=== PATIENT | male | born 1965 | race Caucasian/White ===

== ENCOUNTER 2017-05-20 19:47 | Emergency (ER) | payer OTHER ==
[~2017-05-20] VITALS: Ht 185.4 cm; Wt 100.0 kg
[~2017-05-20 19:47] MED LIST: AMOXICILLIN 50500 MG PO; AMOXICILLIN 8751 TAB PO; AMOXICILLIN125 MG PO; ASPIRIN 81M81 MG/TA2 PO; ATENOLOL50 MG PO; BENADRYL25 MG PO; CARVEDILOL25 MG PO; CATAPRES 0.1MG0.1 MG PO; CLINDAMYCIN HC150 MG PO; CLONIDINE0.2 MG PO; COREG 25MG25 MG/TAB PO; COZAAR100 MG PO; EFFIENT10 MG PO; EPI EZ PEN1 MG/ML IM; FISH OIL1000 MG PO; FLEXERIL 1010 MG/TAB PO; HCTZ12.5TAB PO; LISINOPRIL/HCTZ1 TA1 PO; LISINOPRIL/HCTZ1 TAB PO; LOPRESSOR 225 MG/TAB PO; LORTAB 5/500 501 TAB PO; NAPROSYN500 MG PO; NICODERM C14 MG/PATC TOP; NICODERM C21 MG/PATC TOP; NICODERM C7 MG/PATCH TOP; NO HOME MEDICATIONS; NORCO 325 MG-51 TAB PO; NORVASC 10MG10 MG PO; PERCOCET 325 MG1 TA2 PO; PRAVASTATIN40 MG PO; PREDNISONE20 MG PO; ROXICODONE 55 MG/TAB PO; TUSS PO; VICODIN 5/5001 UDTAB PO; ZOFRAN 4MG T4 MG/TAB PO
[2017-05-20 19:59] VITALS: TEMP 98
[2017-05-20] MEDS ORDERED: MICROZIDE12.5 MG PO (20:05)
[2017-05-20] MEDS ORDERED: LIPITOR 40MG TA40 MG PO (20:06)
[2017-05-20 20:57] LABS: BASO # 0.1 (0.0-0.2); BASO % 0.5 % (0.0-2.0); EOS # 0.6 (0.0-0.7); EOS % 5.2 % (0-4.0); GRAN # 4.8 (1.4-6.5); HEMATOCRIT 39.2 % (42.0-52.0); HEMOGLOBIN 13.6 g/dl (13.5-18.0); LYMPH # 4.4 (1.2-3.4); LYMPH % 40.1 % (20.0-51.0); MEAN CELL VOLUME 92 fl (80.0-100.0); MEAN CORPUSCULAR HEMOGLOBIN 32 pg (27.0-31.0); MEAN CORPUSCULAR HGB CONC 35 g/dl (33.0-37.0); MEAN PLATELET VOLUME 9.2 fl (7.4-10.4); MONO # 1.1 (0.1-0.6); MONO % 9.9 % (1.7-9.3); PLATELET COUNT 220 K/mm3 (130-400); RED BLOOD COUNT 4.26 M/mm3 (4.20-5.60); REDCELL DISTRIBUTION WIDTH-CV 11.9 % (11.5-14.5); WHITE BLOOD COUNT 10.9 K/mm3 (4.8-10.8)
[2017-05-20 21:12] LABS: ADJUSTED CALCIUM 9.4 mg/dL (8.4-10.2); ALANINE AMINOTRANSFERASE 42 U/L (21-72); ALBUMIN 4.2 gm/dL (3.5-5.0); ALKALINE PHOSPHATASE 82 U/L (50-136); ANION GAP 12 mmol/L (7-16); BILIRUBIN,TOTAL 0.4 mg/dL (0.0-1.0); BLOOD UREA NITROGEN 23 mg/dL (9-20); C-REACTIVE PROTEIN < 0.5 mg/dL (0.0-0.9); CALCIUM 9.6 mg/dL (8.4-10.2); CARBON DIOXIDE 25 mmol/L (22-30); CHLORIDE 103 mmol/L (98-107); CREATININE, serum 0.82 mg/dL (0.66-1.25); GLUCOSE 94 mg/dL (74-106); POTASSIUM 3.7 mmol/L (3.4-5.0); SODIUM 139 mmol/L (137-145); TOTAL PROTEIN 7.6 gm/dL (6.4-8.2)
[2017-05-20] MEDS ORDERED: CLEOCIN HCL300 MG PO (22:14)
[2017-05-20] MEDS ORDERED: PERCOCET 325 MG1 TA3 PO (22:14)
[2017-05-20 22:25] VITALS: BP 143/80; PULSE 80
[2017-05-22 12:32] LABS: MUMPS AB IgG INDEX 1.3 (()); MUMPS VIRUS ANTIBODY,IGG Positive (())
[2017-05-22 15:37] LABS: MUMPS AB IgM INDEX 0.11 (())
== END 2017-05-20 22:34 | disposition home or self-care (01) ==
LOC: COL.ER 19:47
PROVIDERS: Emergency Medicine
DX: K11.1 Hypertrophy of salivary gland (principal); I10 Essential (primary) hypertension; I25.10 Atherosclerotic heart disease of native coronary artery without angina pectoris; F17.200 Nicotine dependence, unspecified, uncomplicated; Z79.82 Long term (current) use of aspirin
CPT/HCPCS: Q9967

== ENCOUNTER → 2018-10-08 | Outpatient (CLI) | payer OTHER ==
[~2018-10-08] MED LIST changes: +CLEOCIN HCL300 MG PO; +LIPITOR 40MG TA40 MG PO; +MICROZIDE12.5 MG PO; +PERCOCET 325 MG1 TA3 PO
== END ==
LOC: COL.RAD 10:02
DX: Z02.71 Encounter for disability determination (principal); M51.16 Intervertebral disc disorders with radiculopathy, lumbar region; M25.521 Pain in right elbow

== ENCOUNTER 2020-01-05 07:50 | Observation (INO) | payer OTHER ==
[~2020-01-05] VITALS: Ht 185.4 cm; Wt 102.7 kg
[2020-01-05 08:47] LABS: ALANINE AMINOTRANSFERASE 31 U/L (4-49); ALBUMIN 4.6 gm/dL (3.5-5.0); ALKALINE PHOSPHATASE 94 U/L (50-136); ANION GAP 12 mmol/L (7-16); AST,SGOT 33 U/L (15-37); BILIRUBIN,TOTAL 0.6 mg/dL (0.0-1.0); BLOOD UREA NITROGEN 21 mg/dL (9-20); CALCIUM 9.7 mg/dL (8.4-10.2); CARBON DIOXIDE 24 mmol/L (22-30); CHLORIDE 104 mmol/L (98-107); CREATININE, serum 0.82 (0.66-1.25); GLUCOSE 112 mg/dL (74-106); POTASSIUM 4.2 mmol/L (3.4-5.0); SODIUM 140 mmol/L (137-145); TOTAL PROTEIN 7.9 gm/dL (6.4-8.2)
[2020-01-05 08:52] LABS: C-REACTIVE PROTEIN < 0.5 mg/dL (0.0-0.9)
[2020-01-05 08:58] LABS: TROPONIN-I 0.057 ng/mL (0.000-0.035)
[2020-01-05 09:14] LABS: BASO # 0.1 (0.0-0.2); EOS # 1.2 (0.0-0.7); EOS % 14.5 % (0-4.0); GRAN # 3.5 (1.4-6.5); GRAN % 42.2 % (42.2-75.2); HEMATOCRIT 44.2 % (42.0-52.0); HEMOGLOBIN 14.7 g/dl (13.5-18.0); LYMPH # 2.8 (1.2-3.4); LYMPH % 33.9 % (20.0-51.0); MEAN CELL VOLUME 96 fl (80.0-100.0); MEAN CORPUSCULAR HEMOGLOBIN 32 pg (27.0-31.0); MEAN CORPUSCULAR HGB CONC 33 g/dl (33.0-37.0); MEAN PLATELET VOLUME 9.8 fl (7.4-10.4); MONO # 0.7 (0.1-0.6); MONO % 8.2 % (1.7-9.3); PLATELET COUNT 221 K/mm3 (130-400); RED BLOOD COUNT 4.61 M/mm3 (4.20-5.60); REDCELL DISTRIBUTION WIDTH-CV 12.3 % (11.5-14.5)
[2020-01-05 13:58] VITALS: BP 156/96; PULSE 85; TEMP 97.8
[2020-01-05 14:13] LABS: PARTIAL THROMBOPLASTIN TIME 32.8 SECONDS (26.0-37.0)
[2020-01-05 15:04] VITALS: BP 156/96; PULSE 85; TEMP 97.8
--- NOTE | 2020-01-05 18:01 | NUR ---
Patient transferring to [facility], I have called and given report to recieving nurse YOON Neely, Heparin gtt infusing at 10ml/hr, patient is being transported by [facility], daughter present at tiem of discharge
== END 2020-01-05 18:03 | disposition other institution, planned readmission (95) ==
LOC: COL.ER 07:50 → MEDICAL 09:34
PROVIDERS: Emergency Medicine; Physician Assistant; ADMIT Hospitalist
DX: I42.9 Cardiomyopathy, unspecified (principal); I11.0 Hypertensive heart disease with heart failure; I50.22 Chronic systolic (congestive) heart failure; I21.4 Non-ST elevation (NSTEMI) myocardial infarction; I25.10 Atherosclerotic heart disease of native coronary artery without angina pectoris; I08.1 Rheumatic disorders of both mitral and tricuspid valves; I44.7 Left bundle-branch block, unspecified; F17.210 Nicotine dependence, cigarettes, uncomplicated; F12.90 Cannabis use, unspecified, uncomplicated; Z90.89 Acquired absence of other organs; Z88.8 Allergy status to other drugs, medicaments and biological substances; Z79.82 Long term (current) use of aspirin; Z79.891 Long term (current) use of opiate analgesic; Z79.02 Long term (current) use of antithrombotics/antiplatelets
CPT/HCPCS: J1644; J1940; J2060

== ENCOUNTER 2020-06-01 14:22 | Emergency (ER) | payer OTHER ==
[~2020-06-01] VITALS: Ht 185.4 cm; Wt 104.5 kg
[2020-06-01 14:27] VITALS: TEMP 98.3
[2020-06-01 15:11] LABS: BASO # 0.1 (0.0-0.2); BASO % 0.9 % (0.0-2.0); EOS # 0.9 (0.0-0.7); EOS % 7.2 % (0-4.0); GRAN % 57.7 % (42.2-75.2); HEMOGLOBIN 13.8 g/dl (13.5-18.0); LYMPH # 2.8 (1.2-3.4); LYMPH % 23.5 % (20.0-51.0); MEAN CELL VOLUME 95 fl (80.0-100.0); MEAN CORPUSCULAR HEMOGLOBIN 32 pg (27.0-31.0); MEAN CORPUSCULAR HGB CONC 34 g/dl (33.0-37.0); MONO # 1.2 (0.1-0.6); MONO % 10.3 % (1.7-9.3); PLATELET COUNT 165 K/mm3 (130-400); RED BLOOD COUNT 4.33 M/mm3 (4.20-5.60); REDCELL DISTRIBUTION WIDTH-CV 12.1 % (11.5-14.5)
[2020-06-01 15:17] LABS: ALBUMIN 4.2 gm/dL (3.5-5.0); BILIRUBIN,TOTAL 0.7 mg/dL (0.0-1.0); CALCIUM 9.6 mg/dL (8.4-10.2); CREATININE, serum 0.81 (0.66-1.25); POTASSIUM 4.4 mmol/L (3.4-5.0); TOTAL PROTEIN 7.8 gm/dL (6.4-8.2)
[2020-06-01 15:28] LABS: TROPONIN-I 0.02 ng/mL (0.000-0.035)
[2020-06-01 15:38] LABS: ARTERIAL BLD GAS O2 SATURATION 95.8 % (92-100); ARTERIAL BLD GAS TCO2 CT 20.8; ARTERIAL BLOOD GAS BASE EXCESS -2.7 (-2-2); ARTERIAL BLOOD GAS HCO3 19.9 meq/L (22-26); ARTERIAL BLOOD GAS PCO2 28.9 mmHg (35-45); ARTERIAL BLOOD GAS PO2 76.7 mmHg (80-100); ARTERIAL BLOOD GAS pH 7.46 (7.35-7.45)
[2020-06-01 16:18] LABS: COLLECTION METHOD CLEAN CATCH
[2020-06-01 16:24] LABS: PH 5 (5-8); SQUAMOUS EPITHELIAL None Seen /hpf; URINE APPEARANCE Clear; URINE BACTERIA None Seen /hpf; URINE BILIRUBIN Negative (NEGATIVE); URINE BLOOD Negative (NEGATIVE); URINE COLOR Yellow; URINE GLUCOSE Negative (NEGATIVE); URINE KETONE Negative (NEGATIVE); URINE LEUKOCYTE ESTERASE Negative (NEGATIVE); URINE NITRATE Negative (NEGATIVE); URINE PROTEIN(semi-quant) Negative (NEGATIVE); URINE RBC None Seen /hpf; URINE UROBILINOGEN Negative (NEGATIVE)
[2020-06-01 16:40] VITALS: BP 147/85; PULSE 66
== END 2020-06-01 16:41 | disposition home or self-care (01) ==
LOC: COL.ER 14:22
PROVIDERS: Family Medicine
DX: I97.190 Other postprocedural cardiac functional disturbances following cardiac surgery (principal); R53.1 Weakness; R58 Hemorrhage, not elsewhere classified; Z79.82 Long term (current) use of aspirin; Z95.0 Presence of cardiac pacemaker
CPT/HCPCS: J7120

== ENCOUNTER 2021-09-06 11:21 | Outpatient (CLI) | payer SELFPAY ==
[2021-09-06] VITALS (8 sets, daily range): BP systolic 120–144; BP diastolic 75–110; PULSE 59–64; TEMP 97.5
[~2021-09-06] VITALS: Ht 185.4 cm; Wt 109.0 kg
[2021-09-06] MEDS ORDERED: FLAXSEED OIL1000 MG PO (11:56)
[2021-09-06] MEDS ORDERED: OMEGA-3 1000 MG1 CAP PO (11:56)
[2021-09-06] MEDS ORDERED: ALDACTONE 25MG25 M1 PO (11:56)
[2021-09-06] MEDS ORDERED: LIPITOR 80MG80 MG PO (11:56)
[2021-09-06] MEDS ORDERED: TYLENOL 8 HR PO (11:57)
[2021-09-06] MEDS ORDERED: COREG 25MG25 MG/TAB PO (11:57)
[2021-09-06] MEDS ORDERED: PLAVIX 75MG TAB75 MG PO (11:57)
--- NOTE | 2021-09-06 13:05 | NUR ---
Pt tolerated infusion and 1 hr obs period without issue. INT DC'd with catheter intact. Pt escorted out to ED entrance with steady gait.
== END 2021-09-06 13:05 | disposition home or self-care (01) ==
LOC: EUO 11:21
DX: J02.9 Acute pharyngitis, unspecified (principal)
CPT/HCPCS: M0243; Q0244

== ENCOUNTER 2023-10-23 09:22 | Emergency (ER) | payer MEDICARE ==
[~2023-10-23] VITALS: Ht 185.4 cm; Wt 109.1 kg
[~2023-10-23 09:22] MED LIST changes: +ALDACTONE 25MG25 M1 PO; +FLAXSEED OIL1000 MG PO; +LASIX 20MG TABL20 MG PO; +LEXAPRO 10MG10 MG PO; +LIPITOR 80MG80 MG PO; +OMEGA-3 1000 MG1 CAP PO; +PLAVIX 75MG TAB75 MG PO; +PROTONIX20 MG PO; +TYLENOL 8 HR PO; +ZITHROMAX TRI-500 MG PO
[2023-10-23 10:49] LABS: BASO # 0.1 K/mm3 (0.0-0.2); BASO % 0.8 % (0.0-2.0); EOS # 0.3 K/mm3 (0.0-0.7); EOS % 3.7 % (0.0-4.0); GRAN # 4.5 K/mm3 (1.4-6.5); GRAN % 53.7 % (42.2-75.2); HEMATOCRIT 42.5 % (42.0-52.0); LYMPH # 2.7 K/mm3 (1.2-3.4); LYMPH % 32.4 % (20.0-51.0); MEAN CELL VOLUME 92 fl (80.0-100.0); MEAN CORPUSCULAR HEMOGLOBIN 33 pg (27-31); MEAN CORPUSCULAR HGB CONC 35 g/dl (33.0-37.0); MONO # 0.8 K/mm3 (0.1-0.6); MONO % 9.2 % (1.7-9.3); PLATELET COUNT 187 K/mm3 (130-400); RED BLOOD COUNT 4.62 M/mm3 (4.20-5.60); REDCELL DISTRIBUTION WIDTH-CV 11.3 % (11.5-14.5)
[2023-10-23 11:09] LABS: ALANINE AMINOTRANSFERASE 28 U/L (0-55); ALBUMIN 4.1 gm/dL (3.5-5.0); ALKALINE PHOSPHATASE 68 U/L (40-150); ANION GAP 11 mmol/L (7-16); AST,SGOT 23 U/L (5-34); BILIRUBIN,TOTAL 0.6 mg/dL (0.2-1.2); BLOOD UREA NITROGEN 25 mg/dL (8-26); CALCIUM 9.9 mg/dL (8.4-10.2); CARBON DIOXIDE 21 mmol/L (22-29); CHLORIDE 104 mmol/L (98-107); CREATININE, serum 0.89 mg/dL (0.72-1.25); GLUCOSE 118 mg/dL (70-99); POTASSIUM 4.3 mmol/L (3.5-4.5); SODIUM 136 mmol/L (136-145); TOTAL PROTEIN 7.2 gm/dL (6.2-8.1)
[2023-10-23 11:10] LABS: ACETAMINOPHEN < 1.0 ug/mL (10-30); ALCOHOL(ethanol),MEDICAL < 10 mg/dL (0-10); SALICYLATE < 5.0 mg/dL (15.0-30.0)
[2023-10-23 12:14] LABS: COLLECTION METHOD CLEAN CATCH
[2023-10-23 12:31] LABS: PH 5.5 (5.0-8.5); SQUAMOUS EPITHELIAL None Seen /hpf (0-10); URINE APPEARANCE Clear (CLEAR/HAZY); URINE BLOOD Negative (NEGATIVE); URINE COLOR Yellow (YELLOW); URINE GLUCOSE Negative (NEGATIVE); URINE KETONE Negative (NEGATIVE); URINE NITRATE Negative (NEGATIVE); URINE PROTEIN(semi-quant) Negative (NEGATIVE); URINE RBC None Seen /hpf (0-2); URINE UROBILINOGEN 0.2 E.U/dL (0.2-1.0)
[2023-10-23 16:01] VITALS: BP 152/100; PULSE 94; TEMP 98.2
[2023-10-23 20:48] LABS: TRICYCLIC ANTIDEPRESS URINE NEGATIVE
== END 2023-10-23 16:01 | disposition home or self-care (01) ==
LOC: COL.ER 09:22
PROVIDERS: Physician Assistant
DX: F43.20 Adjustment disorder, unspecified (principal); Z87.891 Personal history of nicotine dependence